=== PATIENT | female | born 1965 | race Caucasian/White ===

== ENCOUNTER 2024-04-13 11:59 | Day surgery (SDC) | payer BC ==
[2024-04-13] MEDS ORDERED: Sodium Chloride 0.9% 10 ML Syringe FLUSH PRN (12:00)
[2024-04-13] MEDS: Lactated Ringers 1,000 ML IV SCH (12:14)
[2024-04-13] MEDS ORDERED: Propofol 200 MG/20 ML SDV ONE (12:56)
[2024-04-13] MEDS ORDERED: Midazolam 1 MG/ML 2 ML SDV ONE (12:56)
== END 2024-04-13 14:56 | disposition home or self-care (01) ==
LOC: KA.SDS 11:59
PROVIDERS: ATTEND Family Medicine
DX: Z12.11 Encounter for screening for malignant neoplasm of colon (principal); D12.6 Benign neoplasm of colon, unspecified; K64.8 Other hemorrhoids; E78.2 Mixed hyperlipidemia; E66.9 Obesity, unspecified; Z68.31 Body mass index [BMI] 31.0-31.9, adult
CPT/HCPCS: 00811; J2250; J2704; J3490; J7120